=== PATIENT | male | born 1980 | race African-American/Black ===

== ENCOUNTER 2016-11-02 07:01 | Emergency (ER) | payer OTHER ==
[~2016-11-02] VITALS: Ht 177.8 cm; Wt 90.5 kg
[~2016-11-02 07:01] MED LIST: FLUO-191 PO
[2016-11-02 08:30] VITALS: BP 127/86
== END 2016-11-02 08:46 | disposition home or self-care (01) ==
LOC: EMS 07:02
DX: S43.402A Unspecified sprain of left shoulder joint, initial encounter (principal); J45.909 Unspecified asthma, uncomplicated; F17.210 Nicotine dependence, cigarettes, uncomplicated; F12.10 Cannabis abuse, uncomplicated; X50.3XXA Overexertion from repetitive movements, initial encounter; X50.0XXA Overexertion from strenuous movement or load, initial encounter; Y93.B2 Activity, push-ups, pull-ups, sit-ups; Y92.69 Other specified industrial and construction area as the place of occurrence of the external cause; Y99.0 Civilian activity done for income or pay
CPT/HCPCS: 99284

== ENCOUNTER 2021-06-17 15:57 | Emergency (ER) | payer OTHER ==
[~2021-06-17] VITALS: Ht 185.4 cm; Wt 115.0 kg
[2021-06-17] MEDS ORDERED: KETOROLAC TROMETHAMINE 10 MG TABLET PO ONE (16:30)
[2021-06-17 17:16] VITALS: BP 133/71
[2021-06-17] MEDS ORDERED: NAPR-1024 PO (17:32)
== END 2021-06-17 17:59 | disposition home or self-care (01) ==
LOC: EMS 15:57
DX: S42.401A Unspecified fracture of lower end of right humerus, initial encounter for closed fracture (principal); M77.8 Other enthesopathies, not elsewhere classified; J45.909 Unspecified asthma, uncomplicated; F17.210 Nicotine dependence, cigarettes, uncomplicated; F12.90 Cannabis use, unspecified, uncomplicated; X58.XXXA Exposure to other specified factors, initial encounter; Y93.89 Activity, other specified; Y92.009 Unspecified place in unspecified non-institutional (private) residence as the place of occurrence of the external cause; Y99.8 Other external cause status
CPT/HCPCS: 29105; 99283